=== PATIENT | female | born 1970 | race Caucasian/White ===

== ENCOUNTER → 2017-01-24 16:27 | Outpatient (CLI) | payer OTHER ==
[~2017-01-24 16:27] MED LIST: ALLERGY SHOTS INJ; ATIVAN1 MG PO; IBUPROFEN600 MG PO; LISINOPRIL10 MG PO; MULTI-DAY VITAM1 TAB PO; PERCOCET 5-3251 TAB PO; PROZAC20 MG PO; ZANTAC150 MG PO
== END | disposition home or self-care (01) ==
LOC: D.MAMMO 08:30
DX: R92.8 Other abnormal and inconclusive findings on diagnostic imaging of breast (principal)

== ENCOUNTER → 2018-09-09 20:55 | Outpatient (CLI) | payer OTHER | END | disposition home or self-care (01) | LOC: D.MAMMO 16:15 | DX: Z12.31 Encounter for screening mammogram for malignant neoplasm of breast (principal) ==

== ENCOUNTER → 2019-07-29 11:00 | Outpatient (CLI) | payer OTHER | END | disposition home or self-care (01) | LOC: D.MAMMO 11:00 | PROVIDERS: ATTEND Family Medicine | DX: Z12.31 Encounter for screening mammogram for malignant neoplasm of breast (principal) ==

== ENCOUNTER 2020-08-08 09:45 | Outpatient (CLI) | payer OTHER | END 2020-08-08 11:00 | disposition home or self-care (01) | LOC: D.MAMMO 09:45 | PROVIDERS: ATTEND Family Medicine | DX: Z12.31 Encounter for screening mammogram for malignant neoplasm of breast (principal) ==